=== PATIENT | male | born 1960 | race Caucasian/White ===

== ENCOUNTER 2018-01-21 00:18 | Inpatient (IN) | payer MEDICARE, MEDICAID ==
[2018-01-21 01:28] LABS: ABS Basophils 0 10^3/ul (0-0.2); ABS Eosinophils 0.2 10^3/ul (0-0.6); ABS Lymphocytes 1.1 10^3/ul (1.0-4.8); ABS Monocytes 0.4 10^3/ul (0-0.8); ABS Neutrophils 2.6 10^3/ul (1.5-7.7); ABS Nucleated RBC 0 10^3/ul; Eosinophil % 5.1 % (0-6); Hematocrit 34 % (42-52); Hemoglobin 11.8 g/dl (14.0-18.0); Mean Corpuscular HGB Conc 35 g/dl (31-36); Mean Corpuscular Hemoglobin 33 pg (27-31); Mean Corpuscular Volume 95 fL (80-94); Mean Platelet Volume 8.8 um3 (7.4-10.4); Nucleated Red Blood Cells % 0; Platelet Count 200 10^3/ul (150-450); Red Blood Count 3.59 10^6/ul (4.00-5.40); Red Cell Distribution Width 13 % (10.5-15); White Blood Count 4.3 10^3/ul (3.5-10.8)
[2018-01-21 01:44] LABS: EGFR Non-African American 97.2 (>60)
--- NOTE | 2018-01-21 04:25 | ED ---
Altered Mental Status - HPI Summary HPI Summary: This is scribliyah Anne documenting for attending physician Chester Dhillon M.D. Pt is a 57 y/o M w/ c/o panic attack. He reports being up all night yesterday and feeling "wired" today. Pt felt similar this past weekend as well and notes that Sx have been coming and going. He states he could not calm himself down, that he felt a skipping in his chest, and that he could not take a full breath of air. Pt claims he felt that he wanted to run, scream, and " jump out of his own skin" tonight. Calf and finger numbness is reported by Pt as well. He believes current housing situation is contributing to stress, still feels anxious, and he wants to talk to [facility]. On triage, presence of pain, SI, and HI are denied. Hx of panic attacks is noted by Pt in room. - History Of Current Complaint Chief Complaint: [facility] Stated Complaint: ANXIETY Time Seen by Provider: 01/21/18 00:49 Onset/Duration: Still Present Timing: Lasting Days - onset "this past weekend" Severity Currently: None - pain is denied Character: Agitation Aggravating Factor(s): Environmental Exposure - living situation Alleviating Factor(s): Nothing - Allergies/Home Medications Allergies/Adverse Reactions: Allergies Allergy/AdvReac Type Severity Reaction Status Date / Time No Known Allergies Allergy Verified 09/01/12 20:46 Home Medications: Home Medications Oxycodone HCl [Oxycodone HCl ER 30 mg] 30 mg PO TID PRN 01/21/18 [History Confirmed 01/21/18] Levothyroxine TAB* [Synthroid 25 MCG TAB*] 25 mcg PO DAILY 01/22/18 [History Confirmed 01/22/18] PMH/Surg Hx/FS Hx/Imm Hx Endocrine/Hematology History: Denies: Hx Anticoagulant Therapy Cardiovascular History: Denies: Hx Pacemaker/ICD Sensory History: Denies: Hx Hearing Aid Psychiatric History: Denies: Hx Panic Disorder - Surgical History Surgery Procedure, Year, and Place: HERNIA REPAIR, FINGER REATTACHED, SLEEP APNEA SURGERY 1-2 YRS AGO Infectious Disease History: No Infectious Disease History: Denies: Traveled Outside the [place] in Last 30 Days - Family History Known Family History: Negative: Blood Disorder - Social History Alcohol Use: Occasionally Substance Use Type: Reports: Marijuana Substance Use Comment - Amount & Last Used: occassionally Smoking Status (MU): Heavy Every Day Tobacco Smoker Review of Systems Positive: Other - "felt skipping in chest" Positive: Other - "cannot take full breath" Neurological: Other - calf and finger numbness Positive: Anxious, Other - agitation All Other Systems Reviewed And Are Negative: Yes Physical Exam - Summary Physical Exam Summary: Appearance: Well-appearing, Well-nourished, lying in bed comfortably Skin: Warm, dry, no obvious rash Eyes: sclera anicteric, no conjunctival pallor ENT: mucous membranes moist, pharynx appears normal Neck: Supple, nontender Respiratory: Clear to auscultation, no signs of respiratory distress Cardiovascular: Normal S1, S2. No murmurs. Normal distal pulses in tibial and radial bilaterally. Abdomen: Soft, nontender, normal active bowel sounds present Musculoskeletal: Normal, Strength/ROM Intact Neurological: A&Ox3, awake and alert, mentation is normal, speech is fluent and appropriate Psychiatric: affect is normal, does appear anxious but not depressed Triage Information Reviewed: Yes Vital Signs On Initial Exam: Initial Vitals Temp Pulse Resp BP Pulse Ox 98.7 F 90 20 142/103 99 01/21/18 00:20 01/21/18 00:20 01/21/18 00:20 01/21/18 00:20 01/21/18 00:20 Vital Signs Reviewed: Yes Diagnostics - Vital Signs Vital Signs Temp Pulse Resp BP Pulse Ox 01/21/18 00:37 82 95 01/21/18 00:31 87 100 01/21/18 00:20 98.7 F 90 20 142/103 99 - Laboratory Lab Results: Lab Results 01/21/18 01/21/18 Range/Units 01:17 01:18 WBC 4.3 (3.5-10.8) 10^3/ul RBC 3.59 L (4.00-5.40) 10^6/ul Hgb 11.8 L (14.0-18.0) g/dl Hct 34 L (42-52) % MCV 95 H (80-94) fL MCH 33 H (27-31) pg MCHC 35 (31-36) g/dl RDW 13 (10.5-15) % Plt Count 200 (150-450) 10^3/ul MPV 8.8 (7.4-10.4) um3 Neut % (Auto) 59.1 (38-83) % Lymph % (Auto) 25.0 (25-47) % [place] % (Auto) 9.7 H (0-7) % Eos % (Auto) 5.1 (0-6) % Baso % (Auto) 1.1 (0-2) % Absolute Neuts (auto) 2.6 (1.5-7.7) 10^3/ul Absolute Lymphs (auto) 1.1 (1.0-4.8) 10^3/ul Absolute Monos (auto) 0.4 (0-0.8) 10^3/ul Absolute Eos (auto) 0.2 (0-0.6) 10^3/ul Absolute Basos (auto) 0 (0-0.2) 10^3/ul Absolute Nucleated RBC 0 10^3/ul Nucleated RBC % 0 Sodium 140 (135-145) mmol/L Potassium 3.1 L (3.5-5.0) mmol/L Chloride 104 (101-111) mmol/L Carbon Dioxide 29 (22-32) mmol/L Anion Gap 7 (2-11) mmol/L BUN 8 (6-24) mg/dL Creatinine 0.82 (0.67-1.17) mg/dL Est GFR ( Amer) 117.6 (>60) Est GFR (Non-Af Amer) 97.2 (>60) BUN/Creatinine Ratio 9.8 (8-20) Glucose 115 H (70-100) mg/dL Calcium 8.7 (8.6-10.3) mg/dL Total Bilirubin 0.30 (0.2-1.0) mg/dL AST 104 H (13-39) U/L ALT 53 H (7-52) U/L Alkaline Phosphatase 22 L (34-104) U/L Total Protein 6.1 L (6.4-8.9) g/dL Albumin 3.8 (3.2-5.2) g/dL Globulin 2.3 (2-4) g/dL Albumin/Globulin Ratio 1.7 (1-3) Result Diagrams: 01/21/18 01:18 01/21/18 01:17 Lab Statement: Any lab studies that have been ordered have been reviewed, and results considered in the medical decision making process. Altered Mental Statu Course/Dx - Diagnoses Provider Diagnoses: Anxiety Discharge - Sign-Out/Discharge Documenting (check all that apply): Patient Departure - Discharge Plan Condition: Fair Disposition: HOME - Billing Disposition and Condition Condition: FAIR Disposition: Home
--- NOTE | 2018-01-21 06:55 | PN ---
ED Flex Patient Progress Note Subjective: This is a 57 year-old M who is here voluntarily and pending psychiatric evaluation secondary to excess energy/anxiety recently . Reports RUQ pain past 3 days. Denies associated nausea, vomiting, diarrhea and no pain w/ eating. LFT's are elevated (AST > ALT). Denies heavy ETOH use and no h/o liver/gallbladder issues. Does have h/o gout since 22 y.o. Objective: Vitals: Most recent vital signs documented below. General: NAD, Alert and oriented x3 HEENT: mucosa moist, sclera anicteric Heart: S1/S2, rrr Lungs: CTA or with rales, rhonchi, wheezing AB: + BS, soft, RUQ TTP - no rebounding Integ: anicteric PSYCH: calm, pleasant, cooperative Laboratory: Current laboratory results documented below. Assessment: 1) Increased energy/anxiety 2) RUQ pain w/ elevated LFT's Plan: 1) Pending voluntary psychiatric evaluation. Will follow up daily __while in ED_ __. 2) U/S and U/A ordered - pt agrees w/ plan Vital Signs Temp Pulse Resp BP Pulse Ox 98.7 F 84 20 142/103 94 01/21/18 00:20 01/21/18 01:00 01/21/18 00:20 01/21/18 00:20 01/21/18 01:00 Lab Results - Entire Visit 01/21/18 01/21/18 01:18 01:17 WBC 4.3 RBC 3.59 L Hgb 11.8 L Hct 34 L MCV 95 H MCH 33 H MCHC 35 RDW 13 Plt Count 200 MPV 8.8 Neut % (Auto) 59.1 Lymph % (Auto) 25.0 [place] % (Auto) 9.7 H Eos % (Auto) 5.1 Baso % (Auto) 1.1 Absolute Neuts (auto) 2.6 Absolute Lymphs (auto) 1.1 Absolute Monos (auto) 0.4 Absolute Eos (auto) 0.2 Absolute Basos (auto) 0 Absolute Nucleated RBC 0 Nucleated RBC % 0 Sodium 140 Potassium 3.1 L Chloride 104 Carbon Dioxide 29 Anion Gap 7 BUN 8 Creatinine 0.82 Est GFR ( Amer) 117.6 Est GFR (Non-Af Amer) 97.2 BUN/Creatinine Ratio 9.8 Glucose 115 H Calcium 8.7 Total Bilirubin 0.30 AST 104 H ALT 53 H Alkaline Phosphatase 22 L Total Protein 6.1 L Albumin 3.8 Globulin 2.3 Albumin/Globulin Ratio 1.7
--- NOTE | 2018-01-21 08:09 | RAD ---
Indication: Right upper quadrant pain, elevated liver enzymes. Real-time sonography of the right upper quadrant was performed. The liver is is enlarged measuring up to 20.3 cm in length. No focal lesions or intrahepatic duct dilatation is noted. The common duct measures up to 0.9 cm in the extrahepatic and extra pancreatic duct. This is borderline abnormal. The distal common duct is not visualized. The gallbladder demonstrates no gallstones, pericholecystic fluid or wall thickening. The pancreas demonstrates no focal mass or pancreatic duct dilatation. The right kidney measures 12.7 x 5.6 x 5.6 cm without hydronephrosis. Aorta is normal in size. Inferior vena cava is unremarkable. IMPRESSION: No evidence of cholelithiasis. The common duct measures up to 0.9 cm which is borderline abnormal. No intrahepatic duct dictation is noted. Enlarged liver.
[2018-01-21] MEDS ORDERED: diPHENhydraMINE PO* 25 MG PO ONE (22:24)
--- NOTE | 2018-01-21 23:23 | ED ---
Progress - Progress Note Progress Note: Asked by mental health unit to eval pt for left foot numbness and to read EKG, ordered for pt to be transferred. Pt seen and examined on flex unit. Pt sitting upright in no distress, complains of chronic back pain, and occasional left leg numbness to his toes. Pt has no problem ambulating. Declines pain medication. Also denies chest pain, SOB, PAREDES, dizziness, abdominal pain, fever or incontinence. PE: Pt alert, calm, conversant, no distress, c/o mild numbness left foot. HEENT: NC/AT Neck: supple Cor S1S2 Lungs: clear Abd soft nontender Extrem moves all extrem well, no edema,no calf tenderness. Neuro: A O x 3, Motor 5/5, Sensation intact to light touch. Gait normal. No focal deficit. Cranial nerves II-XII intact. Pt is able to walk on heels and toes. Reflexes intact. - Consult/PCP Time Called: 09:30 Course/Dx - Course Course Of Treatment: 2129: 01/21/18: Pt c/o left foot numbness and chronic back pain. Pt with intact neuro exam. No concern for radiculopathy, or any red flags for back pain. Pt declines pain medication. EK:08, 01/21/18: SR 75, nl AVIVCT, nl QTc, nl axis, no acute changes, no prior to compare. Pt stable to be transferred at this time, 01/22/18 0215am. Care to Dr. Callahan at change of shift. Discharge - Sign-Out/Discharge Documenting (check all that apply): Sign-Out Patient, Receiving Sign-Out Signing out patient TO: Dior Callahan - at 0215, 01/22/18, pending transfer Receiving patient FROM: Chester Ly - Discharge Plan Referrals: Varghese Nathan MD [Primary Care Provider] -
[2018-01-22 10:53] LABS: Urine Appearance Clear; Urine Blood Negative (Negative); Urine Color Yellow; Urine Ketones Negative (Negative); Urine Protein Negative (Negative); Urine Red Blood Cell Absent (Absent); Urine Specific Gravity 1.015 (1.010-1.030); Urine Urobilinogen Negative (Negative); Urine White Blood Cell Trace(0-5/hpf) (Absent)
--- NOTE | 2018-01-22 10:54 | PN ---
Subjective - Subjective Date of Service: 01/21/18 Service Type: 73329 Hosp care 15 min low complexity Subjective: patient continues to endorse anxiety and suicidal ideation. he understands the mental health unit is full and staff is attempting to identify an accepting hospital. Objective - Appearance Appearance: Well Developed/Nourished Dysmorphic Features: Yes Hygiene: Normal Grooming: Fairly Well Kept - Behavior Psychomotor Activities: Normal Exhibits Abnormal Movement: No - Attitude and Relatedness Attitude and Relatedness: Cooperative Eye Contact: Fair - Speech Quality: Unpressured Latencies: Normal Quantity: Appropriate - Mood Patient's Decription of Mood: "Sad" - Affect Observed Affect: Depressed Affect Consistent with: Dysphoria - Thought Process Patient's Thought Process: Over Inclusive Thought Content: Yes Passive Wish, Yes Suicidal Planning, No Homicidal Ideation, No Paranoid Ideation - Sensorium Experiencing Hallucinations: No, Sensorium is Clear Type of Hallucinations: Visual: No, Auditory: No, Command: No - Level of Consciousness Level of Consciousness: Alert Orientation: Yes Intact, Yes Orientated to Time, Yes Orientated to Place, Yes Orientated to Person - Impulse Control Impulse Control: Poor - Insight and Judgement Insight and Judgement: Poor Assessment - Assessment Merits Inpatient Hospitalization: For Immediate Safety, For Stabilization, To Initiate Treatment Inpatient DSM-V Dx: F41.9 Clinical Impression: 57yo white male, domiciled, who presented to ED with c/o panic and suicidal ideation. He reports desire to stop opioid pain medications and requests admission to [facility]. Plan - Plan Treatment Plan: Name: TRISTAN FLOREZ Birthdate: 1960 [id number] voluntary admission to [facility]. unit is full and pending transfer to accepting facility.
--- NOTE | 2018-01-22 11:09 | PN ---
Subjective - Subjective Service Type: 38861 Hosp care 15 min low complexity Subjective: patient continues to endorse desire for admission to [facility]. he states he "needs help" and that he had a positive experience when here 18 years ago. play writer notified him of likely bed availability [place] [facility] [place]. Objective - Appearance Appearance: Well Developed/Nourished Dysmorphic Features: Yes Hygiene: Normal Grooming: Fairly Well Kept - Behavior Psychomotor Activities: Normal Exhibits Abnormal Movement: No - Attitude and Relatedness Attitude and Relatedness: Cooperative Eye Contact: Good - Speech Quality: Unpressured Latencies: Normal Quantity: Copious - Mood Patient's Decription of Mood: "Anxious" - Affect Observed Affect: Tense Affect Consistent with: Dysphoria - Thought Process Patient's Thought Process: Coherent, Over Inclusive Thought Content: Yes Passive Wish, Yes Suicidal Planning, No Homicidal Ideation, No Paranoid Ideation - Sensorium Experiencing Hallucinations: No, Sensorium is Clear Type of Hallucinations: Visual: No, Auditory: No, Command: No - Level of Consciousness Level of Consciousness: Alert Orientation: Yes Intact, Yes Orientated to Time, Yes Orientated to Place, Yes Orientated to Person - Impulse Control Impulse Control: Tenuous - Insight and Judgement Insight and Judgement: Poor Assessment - Assessment Inpatient DSM-V Dx: F41.9 Clinical Impression: 57yo white male, domiciled, who presented to ED with c/o panic and suicidal ideation. He reports desire to stop opioid pain medications and requests admission to [facility]. Plan - Plan Treatment Plan: Name: TRISTAN FLOREZ Birthdate: 1960 [id number] voluntary admission to [facility] pending bed availability.
[2018-01-22] MEDS ORDERED: Al Hydrox/Mg Hydrox/Simet LIQ* 30 ML UDC PO PRN (11:16)
[2018-01-22] MEDS ORDERED: Nicotine Inhaler* 10 MG AMP INH PRN (11:16)
[2018-01-22] MEDS ORDERED: Nicotine GUM* 2 MG PO PRN (11:16)
[2018-01-22] MEDS ORDERED: Colchicine* 0.6 MG TAB PO PRN (11:20)
--- NOTE | 2018-01-22 12:36 | ED ---
Progress - Progress Note Progress Note: Asked by mental health unit to eval pt for left foot numbness and to read EKG, ordered for pt to be transferred. Pt seen and examined on flex unit. Pt sitting upright in no distress, complains of chronic back pain, and occasional left leg numbness to his toes. Pt has no problem ambulating. Declines pain medication. Also denies chest pain, SOB, PAREDES, dizziness, abdominal pain, fever or incontinence. PE: Pt alert, calm, conversant, no distress, c/o mild numbness left foot. HEENT: NC/AT Neck: supple Cor S1S2 Lungs: clear Abd soft nontender Extrem moves all extrem well, no edema,no calf tenderness. Neuro: A O x 3, Motor 5/5, Sensation intact to light touch. Gait normal. No focal deficit. Cranial nerves II-XII intact. Pt is able to walk on heels and toes. Reflexes intact. - Consult/PCP Time Called: 09:30 Course/Dx - Course Course Of Treatment: 213: 01/21/18: Pt c/o left foot numbness and chronic back pain. Pt with intact neuro exam. No concern for radiculopathy, or any red flags for back pain. Pt declines pain medication. EK:08, 01/21/18: SR 75, nl AVIVCT, nl QTc, nl axis, no acute changes, no prior to compare. Pt stable to be transferred at this time, 01/22/18 0215am. Care to Dr. Callahan at change of shift. - Diagnoses Provider Diagnoses: Anxiety Discharge - Sign-Out/Discharge Documenting (check all that apply): Patient Departure - admit - Discharge Plan Condition: Fair Disposition: ADMITTED TO [facility] Referrals: Varghese Nathan MD [Primary Care Provider] - - Billing Disposition and Condition Condition: FAIR Disposition: Admitted to [facility]
[2018-01-22] MEDS: Levothyroxine TAB* 25 MCG TAB PO SCH (14:48)
[2018-01-22] MEDS ORDERED: diPHENhydraMINE PO* 25 MG PO PRN (16:21)
[2018-01-22] MEDS ORDERED: Hydrocortisone 1% CREAM* 30 GM TUBE TOPICAL PRN (16:21)
[2018-01-22] MEDS: Allopurinol TAB* 100 MG PO SCH (21:20)
[2018-01-22] MEDS: Nicotine Patch Removal NOTE PATCH OFF SCH (21:21)
[2018-01-23] MEDS: Acetaminophen TAB* 325 MG PO PRN (00:25)
[2018-01-23] MEDS: Levothyroxine TAB* 25 MCG TAB PO SCH (07:21)
[2018-01-23] MEDS: Vitamin THERAPEUTIC TAB PO SCH (08:52)
[2018-01-23] MEDS: Nicotine PATCH 21 MG/24 HR* PATCH TRANSDERM SCH (08:53)
[2018-01-23] MEDS: Allopurinol TAB* 100 MG PO SCH ×2 (08:53→21:39)
--- NOTE | 2018-01-23 11:32 | PN ---
[facility]: Group Therapy Note - Service Type Service Type: [id number] Group Psychotherapy - Cognitive Behavioral Group Therapy ( CBT):Patient was attentive and participatory in CBT programming this morning, and remained in good behavioral control. Patient expressed positive insights regarding relevant treatment interventions and goals.
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
[2018-01-23] MEDS ORDERED: cloNIDine TAB* 0.1 MG PO PRN (15:03)
[2018-01-23] MEDS ORDERED: Mirtazapine TAB* 15 MG PO PRN (15:11)
[2018-01-23] MEDS: Nicotine Patch Removal NOTE PATCH OFF SCH (19:35)
[2018-01-24] MEDS: Nicotine PATCH 21 MG/24 HR* PATCH TRANSDERM SCH (08:45)
[2018-01-24] MEDS: Vitamin THERAPEUTIC TAB PO SCH (08:45)
[2018-01-24] MEDS: Allopurinol TAB* 100 MG PO SCH ×2 (08:45→20:10)
[2018-01-24] MEDS: Levothyroxine TAB* 25 MCG TAB PO SCH (08:45)
[2018-01-24] MEDS: Acetaminophen TAB* 325 MG PO PRN (08:59)
--- NOTE | 2018-01-24 11:43 | PN ---
Subjective - Subjective Date of Service: 01/24/18 Service Type: [id number] [facility] care 15 min low complexity Subjective: Patient was seen by self, discussed with treatment team, chart was reviewed. Patient has been compliant with his medications, no reported side effects. Patient reported that finally he was jose ramon to sleep some better last night, continue to report depressive symptoms but working with therapy for his symptoms. Patient sleeping has been better than last few days. Patient eating has been fair on the unit. Patient has been cooperative with staff. Patient behavior has been in control and participating in the milieu. Patient mood was less anxious reports some improvement in his feelings and negative thoughts. Patient has been reporting no suicidal or homicidal ideation on the unit. No psychotic symptoms of delusions or hallucinations. Objective - Appearance Appearance: Healthy Appearing Dysmorphic Features: No Hygiene: Normal Grooming: Fairly Well Kept - Behavior Psychomotor Activities: Normal Exhibits Abnormal Movement: No - Attitude and Relatedness Attitude and Relatedness: Cooperative Eye Contact: Fair - Speech Quality: Unpressured Latencies: Normal Quantity: Appropriate - Mood Patient's Decription of Mood: "better" - Affect Observed Affect: Fair Affect Consistent with: Dysphoria - less - Thought Process Patient's Thought Process: Coherent Thought Content: No Passive Wish, No Suicidal Planning, No Homicidal Ideation, No Paranoid Ideation - Sensorium Experiencing Hallucinations: No, Sensorium is Clear Type of Hallucinations: Visual: No, Auditory: No, Command: No - Level of Consciousness Level of Consciousness: Alert Orientation: Yes Intact, Yes Orientated to Time, Yes Orientated to Place, Yes Orientated to Person - Impulse Control Impulse Control: Intact - Insight and Judgement Insight and Judgement: Fair - Group Participation Particating in Group Activities: Yes - Medication Management Medication Management Adherence: Yes Assessment - Assessment Inpatient DSM-V Dx: F41.9 Clinical Impression: Patient with history of mood disorder unspecified, substance/acohol use disorder , borderline personality disorder. Patient currently admitted due to worsening of depression and suicidal ideation. Patient has also been struggling with relationship issues and feels lonely as recent losses of family and friends. Patient is a danger to self, discharged hence medications are being adjusted and symptoms will be stabilized on inpatient. Plan - Plan Treatment Plan: Name: TRISTAN FLOREZ Birthdate: 1960 [id number] - Patient continues to be hospitalized due to recent suicidal thoughts with plan , mood instability, anxiety and impulsivity. - Patient's medications were adjusted after informed consent with increment in Remeron to 15 mg HS. Will continue with Benadryl and clonidine prn for anxiety and opioid withdrawal respectively. - Patient will be monitored for improvement and side effects. Risk and benefits were discussed. - Patient was encouraged to continue his participation in the milieu, group and individual therapy Medications: Current Medications Al Hydrox/Mg Hydrox/Simethicone (Maalox Plus*) 30 ml PO Q4H PRN PRN Reason: INDIGESTION Allopurinol (Zyloprim Tab*) 100 mg PO BID [facility] Last Admin: 01/24/18 08:45 Dose: 100 mg Clonidine HCl (Catapres Tab*) 0.1 mg PO Q6H PRN PRN Reason: WITHDRAWAL - OPIATE Colchicine (Colcrys*) 0.6 mg PO BID PRN PRN Reason: PAIN Diphenhydramine HCl (Benadryl Po*) 25 mg PO Q4H PRN PRN Reason: ITCHING Last Admin: 01/23/18 00:25 Dose: 25 mg Hydrocortisone (Hytone Cream 1%*) 1 applic TOPICAL TID PRN PRN Reason: ITCHING Last Admin: 01/22/18 21:22 Dose: 1 applic Ibuprofen (Motrin Tab*) 400 mg PO Q6H PRN PRN Reason: PAIN Levothyroxine Sodium (Synthroid Tab*) 25 mcg PO DAILY@0600 [facility] Last Admin: 01/24/18 08:45 Dose: 25 mcg Mirtazapine (Remeron Tab*) 15 mg PO BEDTIME [facility] Multivitamins (Theragran Tab*) 1 tab PO DAILY [facility] Last Admin: 01/24/18 08:45 Dose: 1 tab Nicotine (Nicotine Inhaler*) 10 mg INH Q2H PRN PRN Reason: CRAVING Nicotine (Nicotine Patch 21 Mg/24 Hr*) 1 patch TRANSDERM DAILY@0800 [facility] Last Admin: 01/24/18 08:45 Dose: Not Given Nicotine Polacrilex (Nicotine Gum*) 2 mg PO Q2H PRN PRN Reason: CRAVING Pharmacy Profile Note (Nicotine Patch Removal Note*) 1 note PATCH OFF 2100 [facility] Last Admin: 01/23/18 19:35 Dose: Not Given
[2018-01-24] MEDS: Ibuprofen TAB* 400 MG PO PRN (15:38)
[2018-01-24] MEDS: Bacitracin OINTMENT* 0.5% 0.5 oz TUBE TOPICAL SCH (20:09)
[2018-01-24] MEDS: Nicotine Patch Removal NOTE PATCH OFF SCH (20:10)
[2018-01-24] MEDS: Mirtazapine TAB* 15 MG PO SCH (21:41)
[2018-01-25] MEDS: Levothyroxine TAB* 25 MCG TAB PO SCH (07:39)
[2018-01-25] MEDS: Vitamin THERAPEUTIC TAB PO SCH (08:32)
[2018-01-25] MEDS: Allopurinol TAB* 100 MG PO SCH ×2 (08:32→21:17)
[2018-01-25] MEDS: Bacitracin OINTMENT* 0.5% 0.5 oz TUBE TOPICAL SCH ×2 (08:33→21:19)
[2018-01-25] MEDS: Ibuprofen TAB* 400 MG PO PRN ×2 (08:33→21:19)
[2018-01-25] MEDS: Nicotine PATCH 21 MG/24 HR* PATCH TRANSDERM SCH (08:33)
[2018-01-25] MEDS: Nicotine Patch Removal NOTE PATCH OFF SCH (20:27)
[2018-01-25] MEDS: Mirtazapine TAB* 15 MG PO SCH (21:18)
[2018-01-26] MEDS: Levothyroxine TAB* 25 MCG TAB PO SCH (07:47)
[2018-01-26] MEDS: Nicotine PATCH 21 MG/24 HR* PATCH TRANSDERM SCH (08:08)
[2018-01-26] MEDS: Vitamin THERAPEUTIC TAB PO SCH (09:27)
[2018-01-26] MEDS: Allopurinol TAB* 100 MG PO SCH ×2 (09:27→21:03)
[2018-01-26] MEDS: Bacitracin OINTMENT* 0.5% 0.5 oz TUBE TOPICAL SCH ×2 (09:27→21:04)
--- NOTE | 2018-01-26 17:43 | PN ---
Subjective - Subjective Date of Service: 01/26/18 Service Type: 71500 [facility] care 15 min low complexity Subjective: David reports that overall he has been doing better with improved mood, less anxiety, no thoughts of self harm or harm to others. Denies psychotic symptoms. Sleeping better last couple of days. Tolerating current meds well. Engaged in groups and other unit routines. Objective - Appearance Appearance: Healthy Appearing, Obese Dysmorphic Features: No Hygiene: Normal Grooming: Well Kept - Behavior Psychomotor Activities: Normal Exhibits Abnormal Movement: No - Attitude and Relatedness Attitude and Relatedness: Appropriate Eye Contact: Good - Speech Quality: Unpressured Latencies: Normal Quantity: Appropriate - Mood Patient's Decription of Mood: "Good" - Affect Observed Affect: Non-labile Affect Consistent with: Euthymia - Thought Process Patient's Thought Process: Coherent, Goal Directed Thought Content: No Passive Wish, No Suicidal Planning, No Homicidal Ideation, No Paranoid Ideation - Sensorium Experiencing Hallucinations: No, Sensorium is Clear Type of Hallucinations: Visual: No, Auditory: No, Command: No - Level of Consciousness Level of Consciousness: Alert Orientation: Yes Intact, Yes Orientated to Time, Yes Orientated to Place, Yes Orientated to Person - Impulse Control Impulse Control: Intact - Insight and Judgement Insight and Judgement: Good - Group Participation Particating in Group Activities: Yes - Medication Management Medication Management Adherence: Yes Assessment - Assessment Merits Inpatient Hospitalization: Consolidate Improvements, For Discharge Planning Inpatient DSM-V Dx: F41.9 Clinical Impression: Improved significantly and may be discharged soon. Plan - Plan Treatment Plan: Name: DAVID FLOREZ Birthdate: 1960 [id number] Continued Medication Management: Continue Outpt Medication Medications: Current Medications Al Hydrox/Mg Hydrox/Simethicone (Maalox Plus*) 30 ml PO Q4H PRN PRN Reason: INDIGESTION Allopurinol (Zyloprim Tab*) 100 mg PO BID [facility] Last Admin: 01/26/18 09:27 Dose: 100 mg Bacitracin (Bacitracin Ointment*) 1 applic TOPICAL BID [facility] Last Admin: 01/26/18 09:27 Dose: Not Given Clonidine HCl (Catapres Tab*) 0.1 mg PO Q6H PRN PRN Reason: WITHDRAWAL - OPIATE Colchicine (Colcrys*) 0.6 mg PO BID PRN PRN Reason: PAIN Diphenhydramine HCl (Benadryl Po*) 25 mg PO Q4H PRN PRN Reason: ITCHING Last Admin: 01/23/18 00:25 Dose: 25 mg Hydrocortisone (Hytone Cream 1%*) 1 applic TOPICAL TID PRN PRN Reason: ITCHING Last Admin: 01/22/18 21:22 Dose: 1 applic Ibuprofen (Motrin Tab*) 400 mg PO Q6H PRN PRN Reason: PAIN Last Admin: 01/25/18 21:19 Dose: 400 mg Levothyroxine Sodium (Synthroid Tab*) 25 mcg PO DAILY@0600 [facility] Last Admin: 01/26/18 07:47 Dose: 25 mcg Mirtazapine (Remeron Tab*) 15 mg PO BEDTIME [facility] Last Admin: 01/25/18 21:18 Dose: 15 mg Multivitamins (Theragran Tab*) 1 tab PO DAILY [facility] Last Admin: 01/26/18 09:27 Dose: 1 tab Nicotine (Nicotine Inhaler*) 10 mg INH Q2H PRN PRN Reason: CRAVING Nicotine (Nicotine Patch 21 Mg/24 Hr*) 1 patch TRANSDERM DAILY@0800 [facility] Last Admin: 01/26/18 08:08 Dose: Not Given Nicotine Polacrilex (Nicotine Gum*) 2 mg PO Q2H PRN PRN Reason: CRAVING Pharmacy Profile Note (Nicotine Patch Removal Note*) 1 note PATCH OFF 2100 [facility] Last Admin: 01/25/18 20:27 Dose: Not Given - Discharge Plan Discharge Plan: Outpatient Follow Up Outpatient Program: [facility]
[2018-01-26] MEDS: Nicotine Patch Removal NOTE PATCH OFF SCH (19:38)
[2018-01-26] MEDS: Mirtazapine TAB* 15 MG PO SCH (21:03)
[2018-01-27] MEDS: Levothyroxine TAB* 25 MCG TAB PO SCH (07:55)
[2018-01-27] MEDS: Allopurinol TAB* 100 MG PO SCH ×2 (09:27→21:46)
[2018-01-27] MEDS: Vitamin THERAPEUTIC TAB PO SCH (09:27)
[2018-01-27] MEDS: Nicotine PATCH 21 MG/24 HR* PATCH TRANSDERM SCH (09:27)
[2018-01-27] MEDS: Bacitracin OINTMENT* 0.5% 0.5 oz TUBE TOPICAL SCH ×2 (09:28→21:47)
--- NOTE | 2018-01-27 11:46 | PN ---
[facility]: Group Therapy Note - Service Type Service Type: [id number] Group Psychotherapy - Cognitive Behavioral Group Therapy ( CBT):Patient was attentive and participatory in CBT programming this morning, and remained in good behavioral control. Patient expressed positive insights regarding relevant treatment interventions and goals.
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
[2018-01-27] MEDS: Mirtazapine TAB* 15 MG PO SCH (21:46)
[2018-01-27] MEDS: Nicotine Patch Removal NOTE PATCH OFF SCH (21:47)
[2018-01-28 07:54] VITALS: BP 118/74
[2018-01-28] MEDS: Levothyroxine TAB* 25 MCG TAB PO SCH (08:02)
[2018-01-28] MEDS: Allopurinol TAB* 100 MG PO SCH (08:02)
[2018-01-28] MEDS: Bacitracin OINTMENT* 0.5% 0.5 oz TUBE TOPICAL SCH (08:02)
[2018-01-28] MEDS: Nicotine PATCH 21 MG/24 HR* PATCH TRANSDERM SCH (08:02)
[2018-01-28] MEDS: Vitamin THERAPEUTIC TAB PO SCH (08:02)
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
== END 2018-01-28 13:30 | disposition home or self-care (01) | DRG 880 ==
LOC: ED 00:18 → BSU 01-22 11:16 → ED 01-22 13:27 → UNDOADMIN 01-22 14:23 → BSU 01-22 14:23
PROVIDERS: ADMIT Psychiatry & Neurology Psychiatry; ATTEND Psychiatry & Neurology Psychiatry
PROC: GZHZZZZ Group Psychotherapy (ICD-10-PCS; principal; 2018-01-27)
DX: F41.9 Anxiety disorder, unspecified (principal); R45.851 Suicidal ideations; F11.23 Opioid dependence with withdrawal; F60.3 Borderline personality disorder; M10.9 Gout, unspecified; R82.79 Other abnormal findings on microbiological examination of urine; R82.6 Abnormal urine levels of substances chiefly nonmedicinal as to source; F17.200 Nicotine dependence, unspecified, uncomplicated; F32.9 Major depressive disorder, single episode, unspecified; F39 Unspecified mood [affective] disorder; Z56.0 Unemployment, unspecified; Z63.4 Disappearance and death of family member; Z91.5 Personal history of self-harm; Z81.8 Family history of other mental and behavioral disorders; Z72.89 Other problems related to lifestyle
CPT/HCPCS: 36415; 76705; 80053; 80307; 81003; 81015; 83690; 85025; 87077; 87086; 87186; 90853; 93005; 99222; 99231; 99238; 99284; A9270-GY

== ENCOUNTER 2018-09-09 06:14 | Inpatient (IN) | payer MEDICARE, MEDICAID ==
[~2018-09-09 06:14] MED LIST: Acetaminophen TAB* 325 MG PO ONE; Buffered Lidocaine 1% SYRIN* 1 ML/SYRINGE INTRADERM ONE; Gabapentin CAP(*) 300 MG PO ONE; Lactated Ringers 1000 ML Bag* 1,000 ML IV SCH
[2018-09-09] MEDS ORDERED: Acetaminophen TAB* 325 MG ONE (06:45)
[2018-09-09] MEDS ORDERED: ceFAZolin 2 GM PREMIX in ORs 2 GM/50 ML BAG IVPB ONE (06:45)
[2018-09-09] MEDS ORDERED: Buffered Lidocaine 1% SYRIN* 1 ML/SYRINGE INTRADERM ONE (06:45)
[2018-09-09] MEDS ORDERED: Gabapentin CAP(*) 300 MG ONE (06:45)
[2018-09-09] MEDS ORDERED: Lidocain 1% EPI 1:100,000 * 30 ML MDV ONE (06:51)
[2018-09-09] MEDS ORDERED: Thrombin 5,000 UNITS* 1 APPLIC KIT - topical use - TOPICAL ONE (06:51)
[2018-09-09] MEDS ORDERED: Bacitracin IV* 50,000 UNITS INJ ONE (06:51)
[2018-09-09] MEDS ORDERED: Propofol* 10 MG/ML 20 ML BTL ONE (07:09)
[2018-09-09] MEDS ORDERED: fentaNYL* 50 MCG/ML 2 ML VIAL (100 MCG VIAL) ONE (07:09)
[2018-09-09] MEDS ORDERED: Lidocaine 2% PF * 5 ML VIAL ONE (07:09)
[2018-09-09] MEDS ORDERED: Midazolam* 1 MG/ML 2 ML VIAL (2 MG) ONE (07:09)
[2018-09-09] MEDS ORDERED: Rocuronium* 10 MG/ML VIAL ONE ×2 (07:10→08:50)
[2018-09-09] MEDS ORDERED: KETAMINE HCL* 50 MG/ML 10 ML VIAL ONE (07:10)
[2018-09-09] MEDS ORDERED: Metoclopramide IV* 5 MG/ML 2 ML VIAL ONE (08:15)
[2018-09-09] MEDS ORDERED: Dexamethasone IV* 4 MG/ML 1 ML (4 MG) ONE (08:15)
[2018-09-09] MEDS ORDERED: Ketorolac INJ* 30 MG/ML 1 ML VIAL ONE (08:15)
[2018-09-09] MEDS ORDERED: Ondansetron INJ* 2 MG/ML VIAL ONE (08:15)
[2018-09-09] MEDS ORDERED: EPHEDrine (Pressors)* 50 MG/ML VIAL ONE ×2 (08:27→09:02)
[2018-09-09] MEDS ORDERED: DiMENhydriNATE IV* 50 MG/ML VIAL IV PUSH PRN (08:31)
[2018-09-09] MEDS ORDERED: oxyCODONE TAB* 5 MG TAB PO PRN (08:31)
[2018-09-09] MEDS ORDERED: Naloxone* 0.4 MG/ML 1 ML VIAL IV PRN (08:31)
[2018-09-09] MEDS ORDERED: HYDROmorphone INJ1* 1 MG/ML SYRINGE ONE ×2 (09:45→10:18)
[2018-09-09] MEDS ORDERED: Neostigmine Methylsulfate* 1 MG/ML 10 ML VIAL (1 mg/ml) ONE (09:47)
[2018-09-09] MEDS ORDERED: Glycopyrrolate IV* 0.2 MG/ML 1 ML VIAL ONE (09:47)
[2018-09-09] MEDS: HYDROmorphone INJ1* 1 MG/ML SYRINGE IV PRN ×2 (10:18→10:28)
[2018-09-09] MEDS ORDERED: Ondansetron INJ* 2 MG/ML VIAL IV PRN (10:22)
[2018-09-09] MEDS ORDERED: Nicotine Inhaler* 10 MG AMP INH PRN (10:24)
[2018-09-09] MEDS ORDERED: Lactated Ringers 1000 ML Bag* 1,000 ML IV SCH (11:00)
[2018-09-09] MEDS: Nicotine PATCH 21 MG/24 HR* PATCH TRANSDERM SCH (12:37)
[2018-09-09] MEDS: diPHENhydraMINE PO* 25 MG PO PRN (15:09)
[2018-09-09] MEDS ORDERED: Mouth Piece, Nicotine* 1 EACH CARTRIDGE INH ONE (16:00)
[2018-09-09] MEDS: HYDROcodone/ACETAMIN 5-325 MG* 1 TAB PO PRN ×2 (16:26→20:32)
[2018-09-09] MEDS: Nicotine Patch Removal NOTE PATCH OFF SCH (20:34)
[2018-09-10] MEDS: HYDROcodone/ACETAMIN 5-325 MG* 1 TAB PO PRN ×2 (00:40→05:43)
[2018-09-10] MEDS: Levothyroxine TAB* 25 MCG TAB PO SCH (05:44)
[2018-09-10] MEDS: Allopurinol TAB* 100 MG PO SCH (07:30)
--- NOTE | 2018-09-10 08:03 | PN ---
Progress Note - Progress Note Date of Service: 09/10/18 SOAP: Subjective: [S/p decompressive lumbar laminectomy and discectomy, POD #1 Feeling well this morning Mild persistent left anterior thigh and groin pain Ambulating well independently Eating and drinking well ] Objective: [ Vital Signs: Temp Pulse Resp BP Pulse Ox 97.8 F 87 18 135/82 96 09/10/18 05:07 09/10/18 05:07 09/10/18 05:43 09/10/18 05:07 09/10/18 05:07 General: Alert, sitting up in bed, NAD Neuro: Motor and sensory intact Incision: Drain in place and functioning well Wound drain output 09/09/18 09/09/18 09/09/18 11:00 12:35 14:26 Output, MIKE #1 70 90 90 09/09/18 09/09/18 09/09/18 19:21 19:49 22:10 Output, MIKE #1 20 20 40 09/10/18 09/10/18 09/10/18 00:20 05:09 07:00 Output, MIKE #1 20 60 30 ] Assessment: [Satisfactory post-op. Wound drain requires further monitoring] Plan: [1. Admit to inpatient 2. Continue to monitor drain output Q4H 3. Encourage OOB and ambulation]
[2018-09-10] MEDS: Nicotine PATCH 21 MG/24 HR* PATCH TRANSDERM SCH (09:57)
[2018-09-10] MEDS ORDERED: oxyCODONE/Acetamin 5/325 MG* TAB ONE (10:39)
[2018-09-10] MEDS: oxyCODONE/Acetamin 5/325 MG* TAB PO PRN ×3 (10:43→21:45)
--- NOTE | 2018-09-10 21:06 | OP ---
DATE OF OPERATION: 09/09/18 - ROOM #333 DATE OF : 62 PRIMARY SURGEON: Roel Contreras MD DIRECTOR PAYER: JAY Jones ANESTHESIA: General. PRE-OP DIAGNOSES: Lumbar spinal stenosis L2-3, L3-4, herniated nucleus pulposus L2- 3 on the left. POST-OP DIAGNOSES: Lumbar spinal stenosis L2-3, L3-4, herniated nucleus pulposus L2-3 on the left. OPERATIVE PROCEDURE: Decompressive lumbar laminectomy L2-3, L3-4 with foraminotomies L2-3, L3-4, excision of herniated disk L2-3 on the left with microdissection. DESCRIPTION OF PROCEDURE: After satisfactory general anesthesia was obtained, the patient was placed on the operating room table in the prone position with the chest supported on the Eric frame with the back slightly flexed. The lumbar region was then clipped, prepped and draped in a sterile manner for lumbar laminectomy and a skin incision outlined from L2 to L4. This incision was infiltrated with 1% Xylocaine with epinephrine, after which it was turned in sharply to the level of the lumbar fascia. The fascia was divided along the spinous processes from L2 to L4 and the paraspinal musculature was stripped away from these posterior elements bilaterally utilizing the monopolar cautery. Self-retraining retractors were placed to facilitate exposure. An intraoperative x-ray was obtained verifying proper interspace localization. The initial decompression was carried out at the L2-3 level. The spinous process of L2 and the spinous process of L3 were removed with a combination of the Min rib shear and Leksell rongeurs. The remaining portion of the base of the spinous process of L2 as well as the inferior aspect of the lamina of L2 as well as the medial aspect of the hypertrophied facet complex was thinned out with the Midas Jose drill. A decompression was then carried out superiorly until the attachment of ligamentum flavum was taken down. Ligamentum flavum was then removed with the Kerrison. The decompression was carried out laterally and inferiorly until both L3 nerve roots noted to be free in their course. Attention was then directed to the L3-4 level where a similar decompression was carried out. The finding at this level was a combination of facet and ligamentous hypertrophy contributing to lateral recess stenosis. The decompression was carried out laterally and inferiorly until generous foraminotomies had been carried out of both L4 nerve roots. At this point of procedure, the operating microscope was brought into the field. Its preoperative imaging has suggested a superiorly migrated disk herniation at L2- 3 on the left side. Utilizing microdissection, epidural venous structures were coagulated and divided. Projecting into the foraminal region, compressing the L3 nerve root with multiple fragments of freely extruded disk material. These were teased out and dissected free and removed with pituitary rongeurs. Hemostasis was obtained with the bipolar forceps as well as temporary Gelfoam. After assuring adequate hemostasis, wound was thoroughly irrigated after which a drain was placed in the epidural space and tunneled out toward the left side. The fascia was then reapproximated with 0 Vicryl suture. The subcutaneous tissues closed with 3-0 Vicryl suture and the skin closed with skin clips. The estimated blood loss was 150 cc. The final sponge, padding, and needle counts were correct. The patient was taken to the recovery room, extubated, and in stable condition. [id number]/[facility] #: [id number] LINDA
[2018-09-10] MEDS: Nicotine Patch Removal NOTE PATCH OFF SCH (21:45)
[2018-09-10] MEDS: Magnesium Hydroxide LIQ* 30 ML UDC PO PRN (21:50)
[2018-09-11] MEDS: Levothyroxine TAB* 25 MCG TAB PO SCH (06:21)
[2018-09-11] MEDS: oxyCODONE/Acetamin 5/325 MG* TAB PO PRN ×3 (08:53→18:15)
[2018-09-11] MEDS: Nicotine PATCH 21 MG/24 HR* PATCH TRANSDERM SCH (08:53)
[2018-09-11] MEDS: Allopurinol TAB* 100 MG PO SCH (08:53)
[2018-09-11] MEDS: Magnesium Hydroxide LIQ* 30 ML UDC PO PRN (11:21)
--- NOTE | 2018-09-11 17:36 | PN ---
Progress Note - Progress Note Date of Service: 09/11/18 SOAP: Subjective: [Pt seen this morning at 0730. S/p decompressive lumbar laminectomy and discectomy, POD #2. Reports mild persistent pain in the lower extremity Ambulating independently around the unit Pain management with PO meds Denies nausea, headache ] Objective: [ Vital Signs: Temp Pulse Resp BP Pulse Ox 97.5 F 94 16 152/80 98 09/11/18 15:25 09/11/18 15:25 09/11/18 15:25 09/11/18 15:25 09/11/18 11:26 General: Alert, sitting up in bed, NAD Neuro: Motor and sensory intact Incision: Intact, drain in place and functioning well Wound drain output 09/09/18 09/09/18 09/09/18 11:00 12:35 14:26 Output, MIKE #1 70 90 90 09/09/18 09/09/18 09/09/18 19:21 19:49 22:10 Output, MIKE #1 20 20 40 09/10/18 09/10/18 09/10/18 00:20 05:09 07:00 Output, MIKE #1 20 60 30 09/10/18 09/10/18 09/10/18 10:15 14:31 20:20 Output, MIKE #1 45 40 40 09/11/18 09/11/18 09/11/18 00:34 05:15 09:15 Output, MIKE #1 25 20 25 09/11/18 09/11/18 13:15 17:19 Output, MIKE #1 20 20 ] Assessment: [Satisfactory post-op. ] Plan: [1. Drain requires further monitoring 2. Possible dc tomorrow 3 Encourage ambulation and OOB 4. Continue PO pain management]
[2018-09-11] MEDS: diPHENhydraMINE PO* 25 MG PO PRN (21:34)
[2018-09-11] MEDS: Nicotine Patch Removal NOTE PATCH OFF SCH (21:49)
[2018-09-12] MEDS: Levothyroxine TAB* 25 MCG TAB PO SCH (05:37)
--- NOTE | 2018-09-12 07:58 | PN ---
Progress Note - Progress Note Date of Service: 09/12/18 SOAP: Subjective: [S/p lumbar decompression and discectomy POD #3 Pain well controlled with PO medication Complains of mild LE pain since pre-op Ambulating independently Eating and drinking well Denies headache, nausea.] Objective: [ Vital Signs: Temp Pulse Resp BP Pulse Ox 97.9 F 84 17 137/89 96 09/12/18 04:00 09/12/18 04:00 09/12/18 05:39 09/12/18 04:00 09/12/18 04:00 Wound drain output 09/09/18 09/09/18 09/09/18 11:00 12:35 14:26 Output, MIKE #1 70 90 90 09/09/18 09/09/18 09/09/18 19:21 19:49 22:10 Output, MIKE #1 20 20 40 09/10/18 09/10/18 09/10/18 00:20 05:09 07:00 Output, MIKE #1 20 60 30 09/10/18 09/10/18 09/10/18 10:15 14:31 20:20 Output, MIKE #1 45 40 40 09/11/18 09/11/18 09/11/18 00:34 05:15 09:15 Output, MIKE #1 25 20 25 09/11/18 09/11/18 09/11/18 13:15 17:19 21:09 Output, MIKE #1 20 20 20 09/12/18 09/12/18 00:23 05:26 Output, MIKE #1 20 20 General: Alert, sitting up in bed. NAD Neuro: Motor and sensory intact Incision:Incision intact with bety. Wound drain dc today. Nontender, no swelling or erythema. ] Assessment: [Satisfactory post-op] Plan: [1. Discharge home today 2. Discharge instructions discussed]
[2018-09-12] MEDS: Allopurinol TAB* 100 MG PO SCH (08:04)
[2018-09-12] MEDS: Nicotine PATCH 21 MG/24 HR* PATCH TRANSDERM SCH (08:04)
[2018-09-12 10:03] VITALS: BP 144/78
[2018-09-12] MEDS: oxyCODONE/Acetamin 5/325 MG* TAB PO PRN (10:14)
== END 2018-09-12 13:45 | disposition home or self-care (01) | DRG 520 ==
LOC: OR 06:14 → SSU 10:22 → OBSVTOIN 09-10 08:04
PROVIDERS: ADMIT Neurological Surgery; ATTEND Neurological Surgery
PROC: 01NB0ZZ Release Lumbar Nerve, Open Approach (ICD-10-PCS; 2018-09-09)
PROC: 0SB20ZZ Excision of Lumbar Vertebral Disc, Open Approach (ICD-10-PCS; principal; 2018-09-09 07:30)
DX: M48.062 Spinal stenosis, lumbar region with neurogenic claudication (principal); E03.9 Hypothyroidism, unspecified; M19.90 Unspecified osteoarthritis, unspecified site; F17.210 Nicotine dependence, cigarettes, uncomplicated; H93.13 Tinnitus, bilateral; F32.9 Major depressive disorder, single episode, unspecified; M10.09 Idiopathic gout, multiple sites; M51.26 Other intervertebral disc displacement, lumbar region; E66.9 Obesity, unspecified; E29.1 Testicular hypofunction; E78.5 Hyperlipidemia, unspecified; G47.33 Obstructive sleep apnea (adult) (pediatric); F41.9 Anxiety disorder, unspecified; F60.3 Borderline personality disorder; R09.82 Postnasal drip; Z68.36 Body mass index [BMI] 36.0-36.9, adult; Z72.89 Other problems related to lifestyle; Z86.010 Personal history of colon polyps; Z82.49 Family history of ischemic heart disease and other diseases of the circulatory system
CPT/HCPCS: 72100; A9270-GY; G0378; J0690; J1100; J1170; J1885; J2250; J2405; J2704; J2710; J2765; J3010

== ENCOUNTER 2020-02-04 05:41 | Inpatient (IN) ==
[2020-02-04] MEDS ORDERED: EPINEPHrine SYR 0.1MG/ML 10 ml SYRINGE ONE ×7 (05:42→06:27)
[2020-02-04] MEDS ORDERED: Sodium Bicarbonate 8.4% SYR 50 ml SYRINGE ONE ×3 (05:45→19:56)
[2020-02-04] MEDS ORDERED: Amiodarone IV 150 mg/3 ml VIAL ONE (05:51)
[2020-02-04] MEDS ORDERED: Atropine 0.1 MG/ML 10 ml SYR (1 mg) ONE ×4 (05:55→06:14)
[2020-02-04 06:21] LABS: Hematocrit 43 % (42-52); Hemoglobin 13.6 g/dL (14.0-18.0); Mean Corpuscular HGB Conc 31 g/dL (31-36); Mean Corpuscular Hemoglobin 32 pg (27-31); Mean Corpuscular Volume 101 fL (80-94); Mean Platelet Volume 9.4 fL (7.4-10.4); Platelet Count 165 10^3/uL (150-450); Red Blood Count 4.26 10^6 /uL (4.18-5.48); Red Cell Distribution Width 16 % (10-15); White Blood Count 11.2 10^3/uL (3.5-10.8)
[2020-02-04] MEDS ORDERED: DOPAMINE 800 MG/250 ML CENTR ONE (06:30)
[2020-02-04] MEDS ORDERED: IVPREM CENTR ONE (06:30)
[2020-02-04 06:34] LABS: INR 1.19 (0.82-1.09)
[2020-02-04 06:39] LABS: ALT 63 U/L (7-52); Albumin 3.7 g/dL (3.2-5.2); Albumin/Globulin Ratio 1.6 (1-3); Alkaline Phosphatase 48 U/L (34-104); BUN/Creatinine Ratio 9.4 (8-20); Blood Urea Nitrogen 13 mg/dL (6-24); CO2 Carbon Dioxide 19 mmol/L (22-32); Calcium 8.4 mg/dL (8.6-10.3); Chloride 106 mmol/L (101-111); EGFR Non-African American 52.9 (>60); Globulin 2.3 g/dL (2-4); Glucose 308 mg/dL (70-100)
[2020-02-04 06:41] LABS: Sodium 148 mmol/L (135-145)
[2020-02-04 06:41] LABS: Urine Benzodiazepine Screen None Detected (None Detect); Urine Cannabinoids Screen Presumptive Positive (None Detect); Urine Opiates Screen None Detected (None Detect)
[2020-02-04 06:47] LABS: Troponin I 0.03 ng/mL (<0.03)
[2020-02-04 06:47] LABS: Urine Appearance Cloudy; Urine Bilirubin Negative (Negative); Urine Blood 1+ (Negative); Urine Color Straw; Urine Glucose Negative (Negative); Urine Ketones Negative (Negative); Urine Nitrite Negative (Negative); Urine Protein 2+(100 mg/dL) (Negative); Urine Specific Gravity 1.003 (1.010-1.030); Urine Urobilinogen Negative (Negative)
[2020-02-04 07:01] LABS: Urine Bacteria Absent (Absent); Urine Red Blood Cell 1+(3-5/hpf) (Absent); Urine Squamous Epithelial Cell Present (Absent); Urine White Blood Cell Trace(0-5/hpf) (Absent)
[2020-02-04 07:21] LABS: Anion Gap 23 mmol/L (2-11)
[2020-02-04 07:29] LABS: ABS Basophils 0.1 10^3/ul (0-0.2); ABS Eosinophils 0.1 10^3/ul (0-0.6); ABS Lymphocytes 5.8 10^3/ul (1.0-4.8); ABS Monocytes 0.6 10^3/ul (0-0.8); ABS Neutrophils 4.6 10^3/ul (1.5-7.7); Lymphocyte % 52.3 %; Nucleated Red Blood Cells % 0.1
[2020-02-04] MEDS ORDERED: DOPamine 800 MG/250 ML IVPREM 800 MG/250 ML ML CENTR SCH (08:00)
[2020-02-04] MEDS ORDERED: fentaNYL INFUSION 50 MCG/ML 2,500 MCG/50 ML BAG IV SCH (08:00)
[2020-02-04] MEDS ORDERED: cefTRIAXone 1 gm/50 mL NS BAG 1 GM/50 ML BAG IVPB SCH (09:00)
[2020-02-04] MEDS: Azithromycin 500 mg/250 ml NS 500 MG/250 ML BAG IVPB SCH ×2 (09:15→10:01)
[2020-02-04] MEDS: Midazolam 50 MG VIAL IV DRIP 50 ML IV SCH ×2 (09:15→16:55)
[2020-02-04] MEDS: Sodium Bicarb 8.4% Vial 50 ML 150 MEQ in D5W 1000 ml BAG 850 ML IV SCH ×2 (10:17→20:08)
[2020-02-04] MEDS ORDERED: Magnesium Sulfate 2 gm BAG 2 GM/50 ML BAG IVPB ONE (10:21)
[2020-02-04] MEDS: Phenylephrine IV 50 MG in NS 0.9% 250 ml 245 ML IV SCH ×3 (10:46→23:01)
[2020-02-04] MEDS: Thiamine 100 MG/ML 2 ml VIAL 500 MG in NS 0.9% 250 ml 250 ML IV SCH ×2 (11:10→18:15)
[2020-02-04] MEDS ORDERED: Norepinephrine 16MCG/ML IVPRE 4,000 MCG/250 ML BAG IV SCH (12:00)
[2020-02-04 12:04] LABS: Hematocrit 47 % (42-52); Hemoglobin 15.5 g/dL (14.0-18.0); Mean Corpuscular HGB Conc 33 g/dL (31-36); Mean Corpuscular Hemoglobin 31 pg (27-31); Mean Corpuscular Volume 95 fL (80-94); Mean Platelet Volume 8.3 fL (7.4-10.4); Platelet Count 246 10^3/uL (150-450); Red Blood Count 4.96 10^6 /uL (4.18-5.48); Red Cell Distribution Width 16 % (10-15); White Blood Count 19.7 10^3/uL (3.5-10.8)
[2020-02-04] MEDS: Pantoprazole VIAL 40 MG VIAL IV SCH ×2 (12:08→22:22)
[2020-02-04] MEDS: Chlorhexidine MOUTHWASH 0.12% 15 ML UDC TOPICAL SCH ×4 (12:17→23:01)
[2020-02-04 12:20] LABS: INR 1.75 (0.82-1.09)
[2020-02-04 12:24] LABS: Albumin 3.8 g/dL (3.2-5.2); Albumin/Globulin Ratio 1.7 (1-3); Alkaline Phosphatase 156 U/L (34-104); BUN/Creatinine Ratio 8.8 (8-20); Blood Urea Nitrogen 17 mg/dL (6-24); CO2 Carbon Dioxide 16 mmol/L (22-32); Calcium 7.6 mg/dL (8.6-10.3); Chloride 107 mmol/L (101-111); EGFR African American 43.2 (>60); EGFR Non-African American 35.7 (>60); Globulin 2.3 g/dL (2-4); Glucose 229 mg/dL (70-100); Phosphorus 6.4 mg/dL (2.5-5.0); Sodium 144 mmol/L (135-145); Total Protein 6.1 g/dL (6.4-8.9)
[2020-02-04 12:34] LABS: ABS Basophils 0.1 10^3/ul (0-0.2); ABS Eosinophils 0.1 10^3/ul (0-0.6); ABS Lymphocytes 1.8 10^3/ul (1.0-4.8); ABS Monocytes 0.3 10^3/ul (0-0.8); ABS Neutrophils 17.5 10^3/ul (1.5-7.7); ABS Nucleated RBC 0.1 10^3/ul; Eosinophil % 0.3 %; Lymphocyte % 9.3 %; Nucleated Red Blood Cells % 0.4
[2020-02-04 12:35] LABS: Platelet Morphology Large
[2020-02-04 12:38] LABS: Anion Gap 21 mmol/L (2-11)
[2020-02-04 13:16] LABS: ALT 580 U/L (7-52); Creatine Kinase 2580 U/L (10-223)
[2020-02-04] MEDS ORDERED: Cisatracurium 100 MG in NS 0.9% 250 ml 200 ML IV SCH (13:30)
[2020-02-04 15:09] LABS: Magnesium 2.5 mg/dL (1.9-2.7)
[2020-02-04] MEDS ORDERED: Perflutren Lipid Microsphere 3 ML VIAL ONE (15:26)
[2020-02-04] MEDS ORDERED: fentaNYL 100 mcg/2 ml 50 MCG/ML VIAL ONE (15:45)
[2020-02-04] MEDS ORDERED: fentaNYL 100 mcg/2 ml 50 MCG/ML VIAL IV SLOW PU ONE (15:47)
[2020-02-04 17:22] LABS: Troponin I 5.21 ng/mL (<0.03)
[2020-02-04] MEDS ORDERED: Dexmedetomidine 1,000 MCG in NS 0.9% 250 ml 240 ML IV SCH (18:30)
[2020-02-04] MEDS ORDERED: Norepinephrine 16MCG/ML IVPRE 4,000 MCG/250 ML BAG IV ONE (19:50)
[2020-02-04 19:53] LABS: Hematocrit 48 % (42-52); Mean Corpuscular HGB Conc 34 g/dL (31-36); Mean Corpuscular Hemoglobin 32 pg (27-31); Mean Corpuscular Volume 94 fL (80-94); Mean Platelet Volume 8.2 fL (7.4-10.4); Platelet Count 206 10^3/uL (150-450); Red Blood Count 5.05 10^6 /uL (4.18-5.48); Red Cell Distribution Width 15 % (10-15); White Blood Count 22.9 10^3/uL (3.5-10.8)
[2020-02-04] MEDS ORDERED: Sodium Bicarbonate 8.4% SYR 50 ml SYRINGE IV ONE ×2 (19:56→20:49)
[2020-02-04 20:10] LABS: Potassium Redraw 3.6 mmol/L (3.5-5.0)
[2020-02-04] MEDS ORDERED: Vasopressin 100 UNITS in D5W 250 ml BAG 245 ML IV SCH (20:30)
[2020-02-04 20:37] LABS: ABS Lymphocytes 0.9 10^3/ul (1.0-4.8); ABS Monocytes 1.1 10^3/ul (0-0.8); ABS Neutrophils 20.9 10^3/ul (1.5-7.7); ABS Nucleated RBC 0.1 10^3/ul; Nucleated Red Blood Cells % 0.4
[2020-02-04] MEDS ORDERED: Sodium Bicarbonate 8.4% VIAL 1 MEQ/ML 50 ml VIAL (50 meq) ONE (20:39)
[2020-02-04] MEDS ORDERED: Midazolam 50 MG VIAL IV DRIP 50 ML IV SCH (20:49)
[2020-02-04] MEDS ORDERED: NS 0.9% 1000 ml BAG 1,000 ML IV ONE (20:49)
[2020-02-04] MEDS: cefTRIAXone 1 gm/50 mL NS BAG 1 GM/50 ML BAG IVPB SCH (20:55)
[2020-02-04] MEDS ORDERED: Pantoprazole VIAL 40 MG VIAL IV SCH (21:00)
[2020-02-04 21:02] LABS: Albumin 3.7 g/dL (3.2-5.2); Calcium 7.3 mg/dL (8.6-10.3); Potassium 3.7 mmol/L (3.5-5.0); Total Bilirubin 0.6 mg/dL (0.2-1.0)
[2020-02-04] MEDS: Norepinephrine 16MCG/ML IVPRE 4,000 MCG/250 ML BAG IV SCH ×2 (21:04→21:19)
[2020-02-04 21:08] LABS: Albumin/Globulin Ratio 1.8 (1-3); BUN/Creatinine Ratio 6.8 (8-20); EGFR African American 25.5 (>60); Globulin 2.1 g/dL (2-4); Total Protein 5.8 g/dL (6.4-8.9)
[2020-02-04] MEDS: NS 0.9% 1000 ml BAG 1,000 ML IV SCH (21:54)
[2020-02-04] MEDS: NOREPINEPHRINE IV SCH (23:16)
[2020-02-04] MEDS: NS 0.9% IV SCH (23:16)
[2020-02-04 23:31] LABS: Troponin I 5.76 ng/mL (<0.03)
[2020-02-05] MEDS: Chlorhexidine MOUTHWASH 0.12% 15 ML UDC TOPICAL SCH ×6 (02:05→21:14)
[2020-02-05] MEDS: Thiamine 100 MG/ML 2 ml VIAL 500 MG in NS 0.9% 250 ml 250 ML IV SCH ×3 (02:05→18:08)
[2020-02-05] MEDS: Sodium Bicarb 8.4% Vial 50 ML 150 MEQ in D5W 1000 ml BAG 850 ML IV SCH ×2 (02:52→09:16)
[2020-02-05] MEDS: Phenylephrine IV 50 MG in NS 0.9% 250 ml 245 ML IV SCH ×5 (03:17→23:05)
[2020-02-05 05:00] LABS: Hematocrit 40 % (42-52); Hemoglobin 13.6 g/dL (14.0-18.0); Mean Corpuscular HGB Conc 34 g/dL (31-36); Mean Corpuscular Hemoglobin 32 pg (27-31); Mean Corpuscular Volume 92 fL (80-94); Mean Platelet Volume 8.8 fL (7.4-10.4); Platelet Count 135 10^3/uL (150-450); Red Blood Count 4.31 10^6 /uL (4.18-5.48); Red Cell Distribution Width 15 % (10-15); White Blood Count 27.7 10^3/uL (3.5-10.8)
[2020-02-05 05:11] LABS: INR 1.29 (0.82-1.09)
[2020-02-05 05:18] LABS: Albumin 2.8 g/dL (3.2-5.2); Albumin/Globulin Ratio 1.5 (1-3); BUN/Creatinine Ratio 7.3 (8-20); EGFR African American 19.7 (>60); EGFR Non-African American 16.2 (>60); Globulin 1.9 g/dL (2-4); Magnesium 1.8 mg/dL (1.9-2.7); Phosphorus 5.7 mg/dL (2.5-5.0); Potassium 4.7 mmol/L (3.5-5.0); Total Bilirubin 0.6 mg/dL (0.2-1.0); Total Protein 4.7 g/dL (6.4-8.9)
[2020-02-05 05:22] LABS: Calcium 6.2 mg/dL (8.6-10.3)
[2020-02-05 06:11] LABS: Troponin I 4.54 ng/mL (<0.03)
[2020-02-05] MEDS: NS 0.9% 1000 ml BAG 1,000 ML IV SCH (06:43)
[2020-02-05 06:52] LABS: ABS Lymphocytes 1.5 10^3/ul (1.0-4.8); ABS Monocytes 0.9 10^3/ul (0-0.8); ABS Neutrophils 25.3 10^3/ul (1.5-7.7); ABS Nucleated RBC 0.1 10^3/ul; Eosinophil % 0.1 %; Lymphocyte % 5.4 %; Nucleated Red Blood Cells % 0.2
[2020-02-05] MEDS: NS 0.9% IV SCH (08:04)
[2020-02-05] MEDS: NOREPINEPHRINE IV SCH (08:04)
[2020-02-05] MEDS: cefTRIAXone 1 gm/50 mL NS BAG 1 GM/50 ML BAG IVPB SCH (08:42)
[2020-02-05 08:49] LABS: Creatine Kinase 3511 U/L (10-223)
[2020-02-05] MEDS: Azithromycin 500 mg/250 ml NS 500 MG/250 ML BAG IVPB SCH (09:15)
[2020-02-05] MEDS: Multivitamins ADULT w/MIN LIQ 15 ML UDC PO SCH (09:42)
[2020-02-05] MEDS: Pantoprazole VIAL 40 MG VIAL IV SCH ×2 (09:42→21:11)
[2020-02-05 10:36] LABS: Albumin 2.6 g/dL (3.2-5.2); Albumin/Globulin Ratio 1.4 (1-3); BUN/Creatinine Ratio 7.9 (8-20); EGFR African American 17.9 (>60); EGFR Non-African American 14.8 (>60); Globulin 1.8 g/dL (2-4); Potassium 4.5 mmol/L (3.5-5.0); Total Bilirubin 0.5 mg/dL (0.2-1.0); Total Protein 4.4 g/dL (6.4-8.9)
[2020-02-05 11:12] LABS: Calcium 5.9 mg/dL (8.6-10.3)
[2020-02-05] MEDS ORDERED: CALCIUM GLUCONATE 1GM/50ML NS 1 GM/50 ML BAG IV ONE ×2 (11:13→21:00)
[2020-02-05] MEDS ORDERED: Piperacillin/Tazobac ADVAN 3.375 GM in NS 0.9% 100 ml BAG 100 ML IV ONE (11:31)
[2020-02-05] MEDS ORDERED: Magnesium Sulfate 2 gm BAG 2 GM/50 ML BAG IVPB ONE (11:32)
[2020-02-05] MEDS ORDERED: Linezolid 600 MG IVPREMIX(*) 600 MG/300 ML BAG IVPB SCH (12:00)
[2020-02-05] MEDS ORDERED: Zosyn per Pharmacy NOTE FOLLOW UP SCH (12:00)
[2020-02-05] MEDS ORDERED: Phenylephrine IV 10 MG/ML 1 ml VIAL ONE (12:53)
[2020-02-05] MEDS ORDERED: Vancomycin 1500 MG IV - x ONCE IVPB ONE (14:30)
[2020-02-05] MEDS ORDERED: Vancomycin per Pharmacy 1 EA NOTE FOLLOW UP SCH (15:00)
[2020-02-05] MEDS ORDERED: Norepinephrine 16MCG/ML IVPRE (4 MG/250 ML) in NS 0.9% IV ONE (15:37)
[2020-02-05] MEDS: ZOSYN 3.375 GM Q12H per EXTENDED INFUSION IV SCH (16:13)
[2020-02-05 20:30] LABS: Hematocrit 37 % (42-52); Hemoglobin 12.5 g/dL (14.0-18.0); Mean Corpuscular HGB Conc 34 g/dL (31-36); Mean Corpuscular Hemoglobin 31 pg (27-31); Mean Corpuscular Volume 92 fL (80-94); Red Blood Count 3.98 10^6 /uL (4.18-5.48); Red Cell Distribution Width 15 % (10-15); White Blood Count 18.3 10^3/uL (3.5-10.8)
[2020-02-05 20:34] LABS: Albumin 2.6 g/dL (3.2-5.2); Albumin/Globulin Ratio 1.2 (1-3); BUN/Creatinine Ratio 7.4 (8-20); EGFR African American 13.7 (>60); EGFR Non-African American 11.3 (>60); Globulin 2.1 g/dL (2-4); Indirect Bilirubin 0.4 mg/dL (0.3-1.0); Potassium 4.4 mmol/L (3.5-5.0); Total Bilirubin 0.6 mg/dL (0.2-1.0); Total Protein 4.7 g/dL (6.4-8.9)
[2020-02-05 20:36] LABS: Calcium 6.2 mg/dL (8.6-10.3)
[2020-02-05 21:28] LABS: ABS Basophils 0.1 10^3/ul (0-0.2); ABS Eosinophils 0.2 10^3/ul (0-0.6); ABS Monocytes 0.5 10^3/ul (0-0.8); ABS Neutrophils 15.4 10^3/ul (1.5-7.7); Lymphocyte % 11.1 %; Mean Platelet Volume 9.3 fL (7.4-10.4); Nucleated Red Blood Cells % 0.1; Platelet Count 92 10^3/uL (150-450)
[2020-02-06] MEDS: D5W IV SCH ×3 (00:18→13:34)
[2020-02-06] MEDS: NOREPINEPHRINE IV SCH ×3 (00:18→13:34)
[2020-02-06] MEDS: Thiamine 100 MG/ML 2 ml VIAL 500 MG in NS 0.9% 250 ml 250 ML IV SCH (01:34)
[2020-02-06] MEDS: Chlorhexidine MOUTHWASH 0.12% 15 ML UDC TOPICAL SCH ×6 (01:34→21:36)
[2020-02-06] MEDS: Phenylephrine IV 50 MG in NS 0.9% 250 ml 245 ML IV SCH ×3 (03:06→11:24)
[2020-02-06] MEDS: ZOSYN 3.375 GM Q12H per EXTENDED INFUSION IV SCH ×2 (03:59→16:56)
[2020-02-06 05:34] LABS: EGFR African American 11.2 (>60); EGFR Non-African American 9.3 (>60)
[2020-02-06] MEDS ORDERED: Vancomycin Random Level NOTE FOLLOW UP ONE (06:00)
[2020-02-06 09:07] LABS: Hematocrit 35 % (42-52); Mean Corpuscular HGB Conc 34 g/dL (31-36); Mean Corpuscular Hemoglobin 32 pg (27-31); Mean Corpuscular Volume 92 fL (80-94); Mean Platelet Volume 9.5 fL (7.4-10.4); Platelet Count 101 10^3/uL (150-450); Red Blood Count 3.81 10^6 /uL (4.18-5.48); Red Cell Distribution Width 15 % (10-15); White Blood Count 17.3 10^3/uL (3.5-10.8)
[2020-02-06 09:08] LABS: ABS Basophils 0.1 10^3/ul (0-0.2); ABS Eosinophils 0.3 10^3/ul (0-0.6); ABS Lymphocytes 1.6 10^3/ul (1.0-4.8); ABS Monocytes 0.5 10^3/ul (0-0.8); ABS Neutrophils 14.7 10^3/ul (1.5-7.7); Eosinophil % 1.9 %; Lymphocyte % 9.4 %; Nucleated Red Blood Cells % 0.1
[2020-02-06 09:24] LABS: Albumin 2.7 g/dL (3.2-5.2); Albumin/Globulin Ratio 1.3 (1-3); BUN/Creatinine Ratio 7.1 (8-20); Calcium 6.7 mg/dL (8.6-10.3); EGFR African American 10.5 (>60); EGFR Non-African American 8.7 (>60); Globulin 2.1 g/dL (2-4); Magnesium 1.8 mg/dL (1.9-2.7); Phosphorus 4.6 mg/dL (2.5-5.0); Potassium 4.5 mmol/L (3.5-5.0); Total Bilirubin 0.7 mg/dL (0.2-1.0); Total Protein 4.8 g/dL (6.4-8.9)
[2020-02-06] MEDS: Pantoprazole VIAL 40 MG VIAL IV SCH ×2 (10:27→21:36)
[2020-02-06] MEDS: Multivitamins ADULT w/MIN LIQ 15 ML UDC PO SCH (10:27)
[2020-02-06] MEDS: Azithromycin 500 mg/250 ml NS 500 MG/250 ML BAG IVPB SCH (10:31)
[2020-02-06 10:51] LABS: Vancomycin Trough 13.6 mcg/mL
[2020-02-06] MEDS ORDERED: Vancomycin(*) 1,250 MG IV x ONCE IVPB ONE (13:30)
[2020-02-06] MEDS: Thiamine 100 MG/ML 2 ml VIAL 250 MG in NS 0.9% 100 ml BAG 100 ML IV SCH ×2 (14:39→21:36)
[2020-02-06] MEDS ORDERED: Phenylephrine IV 10 MG/ML 1 ml VIAL ONE (15:32)
[2020-02-06] MEDS: Phenylephrine IV 100 MG in NS 0.9% 500 ml BAG 490 ML IV SCH (19:57)
[2020-02-07] MEDS: NOREPINEPHRINE IV SCH (01:17)
[2020-02-07] MEDS: D5W IV SCH (01:17)
[2020-02-07] MEDS: Chlorhexidine MOUTHWASH 0.12% 15 ML UDC TOPICAL SCH ×6 (01:50→21:06)
[2020-02-07] MEDS: ZOSYN 3.375 GM Q12H per EXTENDED INFUSION IV SCH ×2 (03:30→16:06)
[2020-02-07] MEDS: Phenylephrine IV 100 MG in NS 0.9% 500 ml BAG 490 ML IV SCH ×2 (04:38→20:00)
[2020-02-07] MEDS: Thiamine 100 MG/ML 2 ml VIAL 250 MG in NS 0.9% 100 ml BAG 100 ML IV SCH ×3 (05:18→21:06)
[2020-02-07 05:25] LABS: Hematocrit 31 % (42-52); Hemoglobin 10.4 g/dL (14.0-18.0); Mean Corpuscular HGB Conc 34 g/dL (31-36); Mean Corpuscular Hemoglobin 31 pg (27-31); Mean Corpuscular Volume 91 fL (80-94); Mean Platelet Volume 9.6 fL (7.4-10.4); Platelet Count 104 10^3/uL (150-450); Red Blood Count 3.35 10^6 /uL (4.18-5.48); Red Cell Distribution Width 15 % (10-15); White Blood Count 22.3 10^3/uL (3.5-10.8)
[2020-02-07 05:45] LABS: Albumin 2.6 g/dL (3.2-5.2); Albumin/Globulin Ratio 1.1 (1-3); BUN/Creatinine Ratio 6.9 (8-20); Calcium 7.7 mg/dL (8.6-10.3); EGFR African American 7.7 (>60); EGFR Non-African American 6.3 (>60); Globulin 2.3 g/dL (2-4); Phosphorus 5.2 mg/dL (2.5-5.0); Total Bilirubin 0.8 mg/dL (0.2-1.0); Total Protein 4.9 g/dL (6.4-8.9)
[2020-02-07 05:56] LABS: ABS Basophils 0.1 10^3/ul (0-0.2); ABS Eosinophils 0.1 10^3/ul (0-0.6); ABS Monocytes 0.6 10^3/ul (0-0.8); ABS Neutrophils 20.5 10^3/ul (1.5-7.7); Eosinophil % 0.6 %; Lymphocyte % 4.3 %
[2020-02-07] MEDS ORDERED: Vancomycin Random Level NOTE FOLLOW UP ONE (06:00)
[2020-02-07] MEDS: Pantoprazole VIAL 40 MG VIAL IV SCH ×2 (08:18→20:28)
[2020-02-07] MEDS: Multivitamins ADULT w/MIN LIQ 15 ML UDC PO SCH (08:18)
[2020-02-07] MEDS: Azithromycin 500 mg/250 ml NS 500 MG/250 ML BAG IVPB SCH (11:07)
[2020-02-07 12:07] LABS: EGFR African American 7.1 (>60); EGFR Non-African American 5.9 (>60); Vancomycin Random 20.4 mcg/mL
[2020-02-08 00:45] VITALS: BP 129/77
[2020-02-08] MEDS: Chlorhexidine MOUTHWASH 0.12% 15 ML UDC TOPICAL SCH ×6 (01:40→22:01)
[2020-02-08] MEDS: ZOSYN 3.375 GM Q12H per EXTENDED INFUSION IV SCH ×2 (03:46→16:00)
[2020-02-08] MEDS: Phenylephrine IV 100 MG in NS 0.9% 500 ml BAG 490 ML IV SCH ×2 (04:26→18:17)
[2020-02-08] MEDS: Thiamine 100 MG/ML 2 ml VIAL 250 MG in NS 0.9% 100 ml BAG 100 ML IV SCH ×3 (05:35→22:01)
[2020-02-08] MEDS ORDERED: Vancomycin Trough Check NOTE FOLLOW UP ONE (06:00)
[2020-02-08] MEDS ORDERED: Vancomycin(*) 1,250 MG IV x ONCE IVPB ONE (09:30)
[2020-02-08 10:23] LABS: ABS Basophils 0.1 10^3/ul (0-0.2); ABS Eosinophils 0.3 10^3/ul (0-0.6); ABS Lymphocytes 1.2 10^3/ul (1.0-4.8); ABS Monocytes 0.6 10^3/ul (0-0.8); ABS Neutrophils 7.2 10^3/ul (1.5-7.7); Eosinophil % 3.7 %; Hematocrit 29 % (42-52); Hemoglobin 9.6 g/dL (14.0-18.0); Lymphocyte % 12.7 %; Mean Corpuscular HGB Conc 34 g/dL (31-36); Mean Corpuscular Hemoglobin 31 pg (27-31); Mean Corpuscular Volume 92 fL (80-94); Mean Platelet Volume 9.8 fL (7.4-10.4); Nucleated Red Blood Cells % 0.1; Platelet Count 95 10^3/uL (150-450); Red Cell Distribution Width 15 % (10-15); White Blood Count 9.5 10^3/uL (3.5-10.8)
[2020-02-08 10:35] LABS: Albumin 2.5 g/dL (3.2-5.2); BUN/Creatinine Ratio 7.1 (8-20); Calcium 7.7 mg/dL (8.6-10.3); Globulin 2.5 g/dL (2-4); Magnesium 2.1 mg/dL (1.9-2.7); Phosphorus 6.5 mg/dL (2.5-5.0); Potassium 4.5 mmol/L (3.5-5.0); Total Bilirubin 0.9 mg/dL (0.2-1.0)
[2020-02-08] MEDS: Azithromycin 500 mg/250 ml NS 500 MG/250 ML BAG IVPB SCH (11:00)
[2020-02-08] MEDS: Pantoprazole VIAL 40 MG VIAL IV SCH ×2 (11:00→22:00)
[2020-02-08] MEDS: Multivitamins ADULT w/MIN LIQ 15 ML UDC PO SCH (11:00)
[2020-02-08] MEDS: Norepinephrine 16MCG/ML IVPRE 4,000 MCG/250 ML BAG IV SCH ×2 (12:51→21:30)
[2020-02-08] MEDS ORDERED: Norepinephrine 16MCG/ML IVPRE 4,000 MCG/250 ML BAG IV SCH (23:41)
[2020-02-09] MEDS ORDERED: Lorazepam PYXIS KEY PRN (02:06)
[2020-02-09] MEDS ORDERED: LORazepam 2 mg VIAL 1 ml IV PUSH ONE (02:06)
[2020-02-09] MEDS ORDERED: Lorazepam PYXIS KEY ONE (02:08)
[2020-02-09] MEDS ORDERED: LORazepam 2 mg VIAL 1 ml ONE (02:08)
[2020-02-09] MEDS: Chlorhexidine MOUTHWASH 0.12% 15 ML UDC TOPICAL SCH (03:02)
[2020-02-09] MEDS ORDERED: Vancomycin Random Level NOTE FOLLOW UP ONE (06:00)
== END 2020-02-09 02:26 | disposition expired | DRG 871 ==
LOC: ED 05:41 → ICU 07:30
PROVIDERS: ADMIT Internal Medicine; ATTEND Internal Medicine